=== PATIENT | male | born 1970 | race Caucasian/White ===

== ENCOUNTER 2017-02-16 16:53 | Emergency (ER) | payer BC, MEDICAID ==
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
[2017-02-16 18:46] VITALS: BP 136/72; PULSE 90; RESP 18; TEMP 98.4; O2SAT 93
== END 2017-02-16 18:46 | disposition home or self-care (01) ==
DX: M79.89 Other specified soft tissue disorders (principal); R21 Rash and other nonspecific skin eruption

== ENCOUNTER → 2018-05-22 | Outpatient (CLI) | payer OTHER ==
[~2018-05-22] MED LIST: GADOBUTROL 10 ML VIAL IVP ONE
== END ==
LOC: FIMAGING 08:25
PROVIDERS: ATTEND Internal Medicine Infectious Disease
DX: M25.572 Pain in left ankle and joints of left foot (principal); T81.89XS Other complications of procedures, not elsewhere classified, sequela
CPT/HCPCS: A9585